=== PATIENT | female | born 1995 | race Caucasian/White ===

== ENCOUNTER 2018-04-05 23:49 | Emergency (ER) | payer OTHER ==
[~2018-04-05] VITALS: Ht 182.9 cm; Wt 74.6 kg
[2018-04-06 02:41] LABS: HEMATOCRIT 30.2 % (36.0-46.0); HEMOGLOBIN 10.1 G/DL (11.9-15.5); MCH 29.7 PG (29.0-34.0); MCHC 33.4 G/DL (30.0-36.0); MCV 88.8 FL (83-99); PLATELET COUNT 362 K/uL (156-360); RBC DIS.WIDTH-CV 15.4 % (11.8-14.6); RBC DIS.WIDTH-SD 50.4 % (39-53); WHITE BLOOD COUNT 15.1 K/uL (4.1-10.2)
[2018-04-06 02:54] LABS: ALBUMIN 3.5 g/dL (3.2-4.8); CHLORIDE 103 mEq/L (99-109); POTASSIUM 3.4 mEq/L (3.7-5.4); SODIUM 137 mEq/L (136-147)
[2018-04-06 02:56] LABS: GLUCOSE 140 mg/dL (70-99); TOTAL PROTEIN 7.2 g/dL (6.4-8.3)
[2018-04-06 02:58] LABS: TOTAL BILIRUBIN 0.5 mg/dL (0.0-1.0)
[2018-04-06 03:00] LABS: ALKALINE PHOSPHATASE 73 IU/L (3-129); CREATININE 0.7 mg/dL (0.6-1.3); GFR ESTIMATE (CALCULATED) > 59 mL/min/
[2018-04-06 03:01] LABS: UREA NITROGEN (BUN) 11 mg/dL (9-23)
[2018-04-06 03:02] LABS: AST (GOT) 20 IU/L (2-34)
[2018-04-06 03:03] LABS: ALT (GPT) 17 IU/L (3-49)
[2018-04-06 03:09] LABS: QUANTITATIVE HCG < 4.0 MIU/ML
[2018-04-06 04:30] VITALS: BP 122/81
[2018-04-06 05:28] LABS: AMPHETAMINE NEGATIVE (500 ng/mL); BARBITURATES NEGATIVE (200 ng/mL); BENZODIAZEPINES NEGATIVE (150 ng/mL); BUPRENORPHINE NEGATIVE (10 ng/mL); COCAINE PRESUMPTIVE POSITIVE (150 ng/mL); METHADONE NEGATIVE (200 ng/mL); METHAMPHETAMINE NEGATIVE (500 ng/mL); OPIATES (MORPHINE) PRESUMPTIVE POSITIVE (100 ng/mL); OXYCODONE NEGATIVE (100 ng/mL); PHENCYCLIDINE NEGATIVE (25 ng/mL); PROPOXYPHENE NEGATIVE (300 ng/mL); THC CANNABINOIDS NEGATIVE (50 ng/mL); TRICYCLIC ANTIDEPRESSANTS NEGATIVE (300 ng/mL)
[2018-04-06 05:33] LABS: APPEARANCE CLEAR ((CLEAR)); BILIRUBIN NEGATIVE; BLOOD NEGATIVE; COLOR YELLOW ((YELLOW)); GLUCOSE (STRIP) NEGATIVE; KETONES NEGATIVE; LEUKOCYTES TRACE; NITRITE POSITIVE; PROTEIN (STRIP) 30
[2018-04-06 05:36] LABS: SPECIFIC GRAVITY > 1.060 (1.000-1.030)
[2018-04-06] MEDS ORDERED: AUGMENTIN875 MG PO (05:40)
[2018-04-06 05:53] LABS: EPITHELIAL CELLS RARE /HPF; RED BLOOD CELLS NONE SEEN /HPF (0-5); WHITE BLOOD CELLS 0-5 /HPF (0-5)
[2018-04-06 05:54] LABS: BACTERIA 3+ /HPF; CALCIUM OXALATE CRYSTALS 1+ /HPF; MUCUS RARE /LPF; UCUL ADDED? YES
== END 2018-04-06 06:00 | disposition home or self-care (01) ==
LOC: EME 23:49
PROVIDERS: Physician Assistant
DX: M95.0 Acquired deformity of nose (principal); D72.829 Elevated white blood cell count, unspecified; J34.89 Other specified disorders of nose and nasal sinuses; F14.90 Cocaine use, unspecified, uncomplicated
CPT/HCPCS: 70487; 80053; 81003; 84702; 84999; 85027; 87077; 87086; 87186; 99281; 99285; J1885; J2405; J3010; J7030